=== PATIENT | female | born 1990 | race Caucasian/White ===

== ENCOUNTER → 2019-01-05 | Outpatient (CLI) | payer MEDICAID ==
--- NOTE | 2019-01-05 15:12 | Diagnostic Imaging Report ---
INDICATION: survey. TECHNIQUE: Multiple real-time grayscale images were obtained over the gravid uterus. COMPARISON: None. FINDINGS: There is a single live fetus in a cephalic presentation. heart rate was recorded at 144 beats per minute. Placenta is posterior and in a marginal location in relation to the internal cervical os. Amniotic fluid volume is unremarkable. Cervical length is 4.3 cm. survey demonstrates kidneys. Bladder and stomach appear to be unremarkable. brain is unremarkable. There is a three-vessel cord with normal insertion. Four-chambered heart view and spine were limited in evaluation due to position. Biometrical measurements are as follows: Biparietal 4.61 cm, age 20 weeks 0 days. Head circumference 18.15 cm, age 20 weeks 4 days. Abdominal circumference 14.91 cm, age 20 weeks 2 days. Femur length 3.39 cm, age 20 weeks 5 days. Sonographic estimate age: 20 weeks 3 days. Sonographic estimated date of delivery: 05/22/2019. Estimated Weight: 351 gm (+/- 51 gm). LMP percentile: 43%. heart rate: 144 beats per minute. number: 1 of 1. IMPRESSION: 1. Single live IUP 20 weeks 3 days gestational age with estimated date of confinement sonographically 05/22/2019. 2. Posterior marginal placenta. 3. survey is unremarkable, although four-chambered heart view and spine were somewhat limited due to position. Dictated by: Dictated on workstation # [id number]
== END ==
LOC: RAD 10:29
PROVIDERS: ATTEND Obstetrics & Gynecology
DX: Z36.89 Encounter for other specified antenatal screening (principal); Z3A.20 20 weeks gestation of pregnancy
CPT/HCPCS: 76805

== ENCOUNTER → 2019-03-04 | Outpatient (CLI) | payer MEDICAID ==
--- NOTE | 2019-03-04 14:52 | Diagnostic Imaging Report ---
INDICATION: Marginal placenta previa followup. TECHNIQUE: Multiple real-time grayscale images were obtained over the gravid uterus. COMPARISON: None. FINDINGS: There is a single live intrauterine of 28 weeks 5 days as dated by a prior study with normal progression of parameters since the prior exam. The placenta is posterior with no previa present. There is normal amount of amniotic fluid. Cardiac activity and motion are seen with no abnormality identified at this time. Biometrical measurements are as follows: Biparietal 7.3 cm, age 29 weeks 3 days. Head circumference 27 cm, age 29 weeks 5 days. Abdominal circumference 24.0 cm, age 28 weeks 3 days. Femur length 5.6 cm, age 29 weeks 2 days. Sonographic estimate age: 29 weeks 2 days. Sonographic estimated date of delivery: 05/18/19. Estimated Weight: 1290 gm (+/- 188 gm). LMP percentile: 41%%. heart rate: 136 beats per minute. number: 1 of 1. IMPRESSION: There is a single live intrauterine of 28 weeks 5 days with normal progression of prior studies. The placenta is posterior and greater than 2 cm from the internal os with no previa present at this time. Dictated by: Dictated on workstation # [id number]
== END ==
LOC: RAD 13:08
PROVIDERS: ATTEND Obstetrics & Gynecology
DX: O44.33 Partial placenta previa with hemorrhage, third trimester (principal); Z3A.29 29 weeks gestation of pregnancy
CPT/HCPCS: 76805

== ENCOUNTER 2019-05-20 08:00 | Inpatient (IN) | payer MEDICAID ==
[~2019-05-20] VITALS: Ht 172.7 cm; Wt 77.9 kg
[2019-05-20] VITALS (19 sets, daily range): BP systolic 108–147; BP diastolic 53–87
--- NOTE | 2019-05-20 08:07 | NUR ---
TOÑITO LE presented to unit via AMBULATORY from HOME, accompanied by FAMILY FOR SCHEDULED INDUCTION OF LABOR. TOÑITO LE weighed, gowned, voided, and to bed. EFHM and TOCO applied, VS taken. TOÑITO LE oriented to bed controls, call light, TV, heat, and A/C controls.
[2019-05-20] MEDS ORDERED: D5 LR IV SOLUTION 1,000 ML IV ONE (08:19)
[2019-05-20] MEDS ORDERED: D5 LR IV SOLUTION 1,000 ML IV SCH (09:04)
[2019-05-20 09:11] LABS: BASOPHILS % (AUTO) 0 % (0-10); EOSINOPHILS # (AUTO) 0.2 10^3/uL (0.0-0.3); EOSINOPHILS % (AUTO) 2 % (0-10); HEMATOCRIT 33 % (35-52); HEMOGLOBIN 10.8 G/DL (11.5-16.0); LYMPHOCYTES # (AUTO) 1.4 X 10^3 (1.0-4.0); LYMPHOCYTES % (AUTO) 15 % (12-44); MEAN CORPUSCULAR HEMOGLOBIN 26 PG (25-34); MEAN CORPUSCULAR HGB CONC 33 G/DL (32-36); MEAN CORPUSCULAR VOLUME 77 FL (80-99); MEAN PLATELET VOLUME 9.7 FL (7.4-10.4); MONOCYTES # (AUTO) 0.6 X 10^3 (0.0-1.0); MONOCYTES % (AUTO) 7 % (0-12); NEUTROPHILS # (AUTO) 6.9 X 10^3 (1.8-7.8); NEUTROPHILS % (AUTO) 75 % (42-75); PLATELET COUNT 246 10^3/uL (130-400); RED CELL DISTRIBUTION WIDTH 14.8 % (10.0-14.5); WHITE BLOOD COUNT 9.1 10^3/uL (4.3-11.0)
[2019-05-20] MEDS ORDERED: MINERAL OIL CONCENTRATE 99.9% 15 ML UDC TOP PRN (09:15)
[2019-05-20] MEDS ORDERED: OXYTOCIN/NORMAL SALINE 500 ML IV SCH ×2 (11:09→13:56)
[2019-05-20] MEDS ORDERED: OXYTOCIN/NORMAL SALINE 500 ML IV ONE (11:14)
[2019-05-20] MEDS ORDERED: FERR-84 PO (11:31)
[2019-05-20] MEDS ORDERED: PREN-37 PO (11:32)
[2019-05-20 12:27] LABS: CLARITY,URINE CLEAR; COLOR,URINE YELLOW; GLUCOSE, URINE (UA) NEGATIVE (NEGATIVE); KETONES,URINE NEGATIVE (NEGATIVE); PH,URINE 6.5 (5-9); PROTEIN,URINE NEGATIVE (NEGATIVE)
[2019-05-20 12:28] LABS: BILIRUBIN,URINE NEGATIVE (NEGATIVE); LEUKOCYTE ESTERASE ,URINE 1+ (NEGATIVE); NITRITE,URINE NEGATIVE (NEGATIVE)
[2019-05-20] MEDS ORDERED: SUFENTA 0.6MCG/ML BUPIVA 0.125 100 ML ONE (12:28)
[2019-05-20 12:29] LABS: BACTERIA,URINE FEW /HPF; SQUAMOUS EPITHELIAL CELL,UR 25-50 /HPF
[2019-05-20 12:30] LABS: YEAST,URINE FEW /HPF
--- NOTE | 2019-05-20 13:59 | OB Labor & Delivery Record ---
Vag Delivery Note Vag Delivery Note Date of Delivery: 05/20/19 Preoperative Diagnosis: Anne Mayes is a (28 /Para 3/2 , Gestational Age (wks)39with [] Postoperative Diagnosis: Same Surgeon: CHASE CONNER Shagger: [] Anesthesia: none Delivery Type: [id number] Findings: [] Viable female , apgars pending, weight pending Lacerations: none Intact placenta with 3 vessel cord. Nuchal cord, body cord x 1 delivered through. No shoulder dystocia Estimated Blood Loss: 400 ml Complications: None Condition: Stable Description of Procedure: The patient is a 28 year old female who presented []. She was admitted and informed consent was obtained. Her labor course was remarkable for [] She progressed to complete dilatation and began to push. She was then set up for delivery. The infant's head was delivered atraumatically in the [] position. The shoulders and remainder of the infant's body were then delivered without difficulty. Upon delivery, the head was held below the level of the perineum and the mouth and nares were bulb suctioned. The cord was doubly clamped and cut and the was handed off to the pediatric staff. An intact placenta with 3-vessel cord delivered via Tracy and there was found to be minimal bleeding.~ Vigorous fundal massage was performed and the fundus was found to be firm. IV oxytocin was given. Examination of the vagina and perineum revealed a [] laceration repaired in the usual fashion with 3-0 vicryl suture. Following the repair, sponge, instrument and needle counts were correct. Mom and baby were both in stable condition in the labor suite. Vitals - Labs Vital Signs - I&O Vital Signs Date Time Temp Pulse Resp B/P (MAP) Pulse Ox O2 Delivery O2 Flow Rate FiO2 05/20/19 12:15 60 18 116/64 (81) Room Air 05/20/19 12:00 37.2 67 18 115/65 (82) Room Air 05/20/19 11:45 72 18 113/63 (80) Room Air 05/20/19 11:22 36.1 82 18 119/65 (83) Room Air 05/20/19 08:25 37.4 90 18 128/81 (97) Room Air Labs Laboratory Tests 05/20/19 08:15: Urine Color YELLOW, Urine Clarity CLEAR, Urine pH 6.5, Urine Specific [place] 1.025H, Urine Protein NEGATIVE, Urine Glucose (UA) NEGATIVE, Urine Ketones NEGATIVE, Urine Nitrite NEGATIVE, Urine Bilirubin NEGATIVE, Urine Urobilinogen 1.0, Urine Leukocyte Esterase 1+H, Urine RBC (Auto) NEGATIVE, Urine RBC NONE, Urine WBC 5-10H, Urine Squamous Epithelial Cells 25-50H, Urine Crystals NONE, Urine Bacteria FEWH, Urine Casts NONE, Urine Mucus MODERATEH, Urine Yeast FEWH, Urine Culture Indicated YES 05/20/19 08:35: White Blood Count 9.1, Red Blood Count 4.21L, Hemoglobin 10.8L, Hematocrit 33L, Mean Corpuscular Volume 77L, Mean Corpuscular Hemoglobin 26, Mean Corpuscular Hemoglobin Concent 33, Red Cell Distribution Width 14.8H, Platelet Count 246, Mean Platelet Volume 9.7, Neutrophils (%) (Auto) 75, Lymphocytes (%) (Auto) 15, Monocytes (%) (Auto) 7, Eosinophils (%) (Auto) 2, Basophils (%) (Auto) 0, Neutrophils # (Auto) 6.9, Lymphocytes # (Auto) 1.4, Monocytes # (Auto) 0.6, Eosinophils # (Auto) 0.2, Basophils # (Auto) 0.0 CHASE CONNER DO May 20, 2019 13:59 POS
[2019-05-20] MEDS ORDERED: CATHETER FLUSH 10 ML SYR IV SCH ×2 (14:00)
[2019-05-20] MEDS ORDERED: TETANUS,DIPTH,PERTUSS P/F (BOOSTRIX) 0.5 ML VIAL IM ONE (14:00)
[2019-05-20] MEDS ORDERED: WITCH HAZEL(TUCKS) 40 EA JAR TOP PRN (14:00)
[2019-05-20] MEDS ORDERED: ACETAMINOPHEN 500 MG TAB (TYLENOL) PO SCH (14:00)
[2019-05-20] MEDS ORDERED: DIBUCAINE (NUPERCAINAL) 1% OINT 30 GM TOP PRN (14:00)
[2019-05-20] MEDS ORDERED: MEASLES,MUMPS,RUBELLA 1 EA INJ SQ ONE (14:00)
[2019-05-20] MEDS ORDERED: BENZOCAINE/MENTHOL (DERMOPLAST) 56 ML CAN TP PRN (14:00)
--- NOTE | 2019-05-20 16:11 | NUR ---
PT UP TO BATHROOM, SHOWERED. FAMILY AT THE BEDSIDE. PT THEN TRANSFERRED FROM -319 TO -310 VIA AMBULATORY IN STABLE CONDITION ACC BY THIS RN AND FAMILY. REFER TO LABOR FLOW SHEET.
[2019-05-20] MEDS: IBUPROFEN 600 MG (MOTRIN) TAB PO SCH ×2 (16:19→22:46)
--- NOTE | 2019-05-20 16:20 | NUR ---
ROUTINE MOTRIN GIVEN PO; SEE EMAR FOR FURTHER. VS OBTAINED. FAMILY REMAINS AT THE BEDSIDE. PT DENIES ANY NEEDS OR QUESTIONS AT THIS TIME. CALL LIGHT WITHIN REACH.
--- NOTE | 2019-05-20 19:18 | NUR ---
PT AMBULATES OFF UNIT WITH S/O AND OTHER CHILD.
[2019-05-20] MEDS: DOCUSATE SODIUM 100 MG (COLACE) CAP PO SCH (22:46)
[2019-05-21 00:55] VITALS: BP 131/74
[2019-05-21 04:28] VITALS: BP 118/75
[2019-05-21] MEDS: IBUPROFEN 600 MG (MOTRIN) TAB PO SCH ×2 (04:28→10:52)
[2019-05-21 05:37] LABS: BASOPHILS % (AUTO) 0 % (0-10); EOSINOPHILS # (AUTO) 0.3 10^3/uL (0.0-0.3); EOSINOPHILS % (AUTO) 3 % (0-10); HEMATOCRIT 29 % (35-52); HEMOGLOBIN 9.4 G/DL (11.5-16.0); LYMPHOCYTES # (AUTO) 1.9 X 10^3 (1.0-4.0); LYMPHOCYTES % (AUTO) 20 % (12-44); MEAN CORPUSCULAR HEMOGLOBIN 26 PG (25-34); MEAN CORPUSCULAR HGB CONC 32 G/DL (32-36); MEAN CORPUSCULAR VOLUME 80 FL (80-99); MEAN PLATELET VOLUME 9.9 FL (7.4-10.4); MONOCYTES # (AUTO) 0.9 X 10^3 (0.0-1.0); MONOCYTES % (AUTO) 9 % (0-12); NEUTROPHILS # (AUTO) 6.4 X 10^3 (1.8-7.8); NEUTROPHILS % (AUTO) 67 % (42-75); PLATELET COUNT 220 10^3/uL (130-400); RED CELL DISTRIBUTION WIDTH 14.5 % (10.0-14.5); WHITE BLOOD COUNT 9.5 10^3/uL (4.3-11.0)
[2019-05-21] MEDS ORDERED: PRENATAL VITAMIN 1 EA TAB PO SCH (07:00)
[2019-05-21] MEDS ORDERED: FERROUS SULF 325 MG (IRON) TAB PO SCH (08:00)
[2019-05-21] MEDS: DOCUSATE SODIUM 100 MG (COLACE) CAP PO SCH (08:36)
[2019-05-21 08:37] VITALS: BP 118/59
--- NOTE | 2019-05-21 08:41 | NUR ---
THIS RN TO PT'S BEDSIDE, PT ON THE PHONE, OTHER DAUGHTER AT THE BEDSIDE. VS OBTAINED. MEDS GIVEN PO; SEE EMAR FOR FURTHER. INITIAL SHIFT ASSESSMENT COMPLETED; SEE INTERVENTION FOR FURTHER. NEW LINENS APPLIED TO BED. NO FURTHER NEEDS VOICED. CALL LIGHT WITHIN REACH.
--- NOTE | 2019-05-21 10:55 | NUR ---
PT IN BED, FAMILY AT THE BEDSIDE. ROUTINE MOTRIN GIVEN PO; SEE EMAR FOR FURTHER. PT DENIES ANY NEEDS AT THIS TIME.
[2019-05-21 12:30] VITALS: BP 116/68
[2019-05-21] MEDS ORDERED: IBUP-844 PO (13:07)
[2019-05-21] MEDS ORDERED: ACET-77 PO (13:07)
--- NOTE | 2019-05-21 13:08 | Postpartum Progress Note ---
Note Note Day # 1 s/p Subjective: Patient is without complaints. Ambulating, voiding. Tolerating a regular diet w ithout nausea or vomiting. Normal lochia. Pain is well controlled with oral pain medications. Objective: Vital Sign - Last 24 Hours 05/20/19 05/20/19 05/20/19 05/20/19 13:15 13:26 13:37 13:52 Temp 37.0 37.0 Pulse 70 73 75 68 Resp 18 18 18 18 B/P (MAP) 120/67 (84) 147/87 (107) 132/62 (85) 123/58 (79) O2 Delivery Room Air Room Air Room Air Room Air 05/20/19 05/20/19 05/20/19 05/20/19 14:24 14:37 15:00 15:31 Temp 37.2 37.2 Pulse 67 59 50 58 Resp 18 18 18 18 B/P (MAP) 122/60 (80) 124/64 (84) 117/60 (79) 115/61 (79) O2 Delivery Room Air Room Air Room Air Room Air 05/20/19 05/20/19 05/21/19 05/21/19 16:18 22:45 00:55 04:28 Temp 38.0 37.5 37.1 36.8 Pulse 55 86 62 81 Resp 18 18 18 18 B/P (MAP) 108/53 (71) 114/69 (84) 131/74 (93) 118/75 (89) Pulse Ox 98 98 98 98 O2 Delivery Room Air Room Air Room Air Room Air 05/21/19 05/21/19 08:37 12:30 Temp 37.3 36.8 Pulse 74 63 Resp 18 16 B/P (MAP) 118/59 (78) 116/68 (84) Pulse Ox 98 98 O2 Delivery Room Air Room Air Intake and Output 05/20/19 05/20/19 05/21/19 15:00 23:00 07:00 Intake Total 1000 ml Balance 1000 ml Laboratory Tests Test 05/21/19 05:27 Range/Units White Blood Count 9.5 4.3-11.0 10^3/uL Red Blood Count 3.66 L 4.35-5.85 10^6/uL Hemoglobin 9.4 L 11.5-16.0 G/DL Hematocrit 29 L 35-52 % Mean Corpuscular Volume 80 80-99 FL Mean Corpuscular Hemoglobin 26 25-34 PG Mean Corpuscular Hemoglobin Concent 32 32-36 G/DL Red Cell Distribution Width 14.5 10.0-14.5 % Platelet Count 220 130-400 10^3/uL Mean Platelet Volume 9.9 7.4-10.4 FL Neutrophils (%) (Auto) 67 42-75 % Lymphocytes (%) (Auto) 20 12-44 % Monocytes (%) (Auto) 9 0-12 % Eosinophils (%) (Auto) 3 0-10 % Basophils (%) (Auto) 0 0-10 % Neutrophils # (Auto) 6.4 1.8-7.8 X 10^3 Lymphocytes # (Auto) 1.9 1.0-4.0 X 10^3 Monocytes # (Auto) 0.9 0.0-1.0 X 10^3 Eosinophils # (Auto) 0.3 0.0-0.3 10^3/uL Basophils # (Auto) 0.0 0.0-0.1 10^3/uL Physical Exam: General - Alert and oriented, no apparent distress Abdomen - Soft, appropriately tender to palpation, non-distended, fundus firm at umbilicus Extremities - no edema, negative Mark's bilaterally Assessment: 1 post- day # 1, status post spontaneous vaginal delivery. Recovering well, hemodynamically stable Plan: Routine care. Encourage breast feeding. Encourage ambulation. Ferrous sulfate supplementation. Plan for discharge Vitals - Labs Vital Signs - I&O Vital Signs Date Time Temp Pulse Resp B/P (MAP) Pulse Ox O2 Delivery O2 Flow Rate FiO2 05/21/19 12:30 36.8 63 16 116/68 (84) 98 Room Air 05/21/19 08:37 37.3 74 18 118/59 (78) 98 Room Air 05/21/19 04:28 36.8 81 18 118/75 (89) 98 Room Air 05/21/19 00:55 37.1 62 18 131/74 (93) 98 Room Air 05/20/19 22:45 37.5 86 18 114/69 (84) 98 Room Air 05/20/19 16:18 38.0 55 18 108/53 (71) 98 Room Air 05/20/19 15:31 58 18 115/61 (79) Room Air 05/20/19 15:00 50 18 117/60 (79) Room Air 05/20/19 14:37 37.2 59 18 124/64 (84) Room Air 05/20/19 14:24 37.2 67 18 122/60 (80) Room Air 05/20/19 13:52 37.0 68 18 123/58 (79) Room Air 05/20/19 13:37 37.0 75 18 132/62 (85) Room Air 05/20/19 13:26 73 18 147/87 (107) Room Air 05/20/19 13:15 70 18 120/67 (84) Room Air I & O 05/21/19 07:00 Intake Total 1000 ml Balance 1000 ml Labs Laboratory Tests 05/21/19 05:27: White Blood Count 9.5, Red Blood Count 3.66L, Hemoglobin 9.4L, Hematocrit 29L, Mean Corpuscular Volume 80, Mean Corpuscular Hemoglobin 26, Mean Corpuscular Hemoglobin Concent 32, Red Cell Distribution Width 14.5, Platelet Count 220, Mean Platelet Volume 9.9, Neutrophils (%) (Auto) 67, Lymphocytes (%) (Auto) 20, Monocytes (%) (Auto) 9, Eosinophils (%) (Auto) 3, Basophils (%) (Auto) 0, Neutrophils # (Auto) 6.4, Lymphocytes # (Auto) 1.9, Monocytes # (Auto) 0.9, Eosinophils # (Auto) 0.3, Basophils # (Auto) 0.0 CHASE CONNER DO May 21, 2019 13:08 POS
--- NOTE | 2019-05-21 13:09 | Discharge Inst-Women's Service ---
Discharge Inst-Women's Serv Depart Medication/Instructions New, Converted or Re-Newed RX: Transmitted to Pharmacy Final Diagnosis social induction vaginal delivery Problems Reviewed?: Yes Consults/Follow Up Additional Follow Up: Yes (6 weeks for pp exam) Activity Activity: Activity as Tolerated Driving Instructions: You May Drive NO SMOKING: NO SMOKING Nothing Inside Vagina: No Douching, No Horace, No Tampons Diet Discharge Diet: No Restrictions Symptoms to Report to : Swelling Increased, Bleeding Excessive, Pain Increased, Fever Over 101 Degrees F, Vaginal Bleeding Increase, Cramps in Feet or Legs, Vaginal Discharge Foul For Any Problems or Questions: Contact Your Physician Skin/Wound Care Bathing Instructions: CHASE Ariza DO May 21, 2019 13:09 POS
[2019-05-21] MEDS ORDERED: DIBUCAINE (NUPERCAINAL) 1% OINT 30 GM TOP PRN (13:45)
[2019-05-21] MEDS ORDERED: PREPARATION H OINTMENT 57 GR TUBE PR PRN (13:45)
[2019-05-21] MEDS ORDERED: DIBU30OI TOP (13:47)
[2019-05-21] MEDS ORDERED: PHEN26CR RC (13:47)
[2019-05-21] MEDS ORDERED: DOCU-143 PO (13:48)
--- NOTE | 2019-05-21 15:05 | NUR ---
PT IN BED, DISCHARGE PAPERS PROVIDED AND REVIEWED WITH PT, PT VERBALIZES UNDERSTANDING AND DENIES ANY QUESTIONS AT THIS TIME. PAPER SIGNED.
--- NOTE | 2019-05-21 15:12 | NUR ---
CALLED [facility] AND VERIFIED TRANSMITTED RX'S.
--- NOTE | 2019-05-21 16:15 | NUR ---
PT DISCHARGED FROM -310 TO PERSONAL AUTO VIA AMBULATORY IN STABLE CONDITION ACC BY S/O AND Adilson MULLER RN.
== END 2019-05-21 16:15 | disposition home or self-care (01) | DRG 807 ==
LOC: LDRP 08:10
PROVIDERS: ADMIT Obstetrics & Gynecology; ATTEND Obstetrics & Gynecology
PROC: 10E0XZZ Delivery of Products of Conception, External Approach (ICD-10-PCS; principal; 2019-05-20)
DX: O69.81X0 Labor and delivery complicated by cord around neck, without compression, not applicable or unspecified (principal); Z37.0 Single live birth; Z3A.39 39 weeks gestation of pregnancy
CPT/HCPCS: 36415; 81000; 85025; 86850; 86900; 86901; 87088